=== PATIENT | male | born 1975 | race African-American/Black ===

== ENCOUNTER 2018-02-27 08:07 | Day surgery (SDC) | payer BC ==
[2018-02-23 10:10] VITALS: BMI 30.4
[2018-02-27 08:38] VITALS: RESP 16; TEMP 98
[2018-02-27] MEDS ORDERED: LIDOCAINE 1% 20 ML VIAL (10MG/ML) FOR IV START INTRADERMA ONE (08:50)
[2018-02-27] MEDS: LACTATED RINGERS 1,000 ML IV SCH ×2 (08:50→08:55)
[2018-02-27] MEDS ORDERED: LIDOCAINE 1% INJ 10MG/ML (20 ML MDV) ONE (08:57)
[2018-02-27] MEDS ORDERED: PROPOFOL 10 MG/ML 20 ML VIAL IV ONE (08:57)
--- NOTE | 2018-02-27 09:08 | P.GSHP ---
History of Present Illness H&P Date: 02/27/18 Chief Complaint: Screening colonoscopy, hemorrhoids Is a 42-year-old male who presents today for colonoscopy. Patient has issues with hemorrhoids. Past Medical History Past Medical History: No Reported History History of Any Multi-Drug Resistant Organisms: None Reported Additional Past Surgical History / Comment(s): dental work with anesthesia Past Anesthesia/Blood Transfusion Reactions: No Reported Reaction Smoking Status: Never smoker - Past Family History Mother Family Medical History: Deep Vein Thrombosis (DVT) Medications and Allergies Home Medications Medication Instructions Recorded Confirmed Type No Known Home Medications [No 02/23/18 02/23/18 History Known Home Medications] Allergies Allergy/AdvReac Type Severity Reaction Status Date / Time No Known Allergies Allergy Verified 02/23/18 10:04 Surgical - Exam Vital Signs Temp Pulse Resp BP Pulse Ox 98.0 F 77 16 130/89 94 L 02/27/18 08:37 02/27/18 08:37 02/27/18 08:37 02/27/18 08:37 02/27/18 08:37 - General well developed, no distress - Eyes PERRL - ENT normal pinna - Neck no masses - Respiratory normal expansion - Cardiovascular Rhythm: regular - Abdomen Abdomen: soft, non tender Assessment and Plan Assessment: Hemorrhoids We'll perform screening colonoscopy.
--- NOTE | 2018-02-27 09:33 | P.OP ---
Date of Procedure: 02/27/18 Preoperative Diagnosis: Hemorrhoids Screening colonoscopy Postoperative Diagnosis: Screening colonoscopy Hemorrhoids Procedure(s) Performed: Colonoscopy Anesthesia: MAC Surgeon: Antione Bradshaw Pathology: none sent Condition: stable Disposition: PACU Description of Procedure: PROCEDURE: The patient was placed on the endoscopy table in the lateral position. Digital rectal examination was performed which revealed mild internal and external hemorrhoids. The prostate was symmetrical without nodules. Flexible colonoscope was then placed in the patient's anus and passed throughout the entire colon. The ileocecal valve was visualized. The cecum, ascending, transverse, descending and sigmoid colon were normal. The rectum was normal as well. There were no masses, polyps or diverticula noted in the entire colon.
[2018-02-27 09:55] VITALS: BP 124/66; PULSE 74
== END 2018-02-27 10:05 | disposition home or self-care (01) ==
LOC: ORWHC2ENDO 08:07
PROVIDERS: ATTEND Surgery
DX: Z12.11 Encounter for screening for malignant neoplasm of colon (principal); K64.8 Other hemorrhoids; K64.4 Residual hemorrhoidal skin tags
CPT/HCPCS: 45378; J2001; J2704

== ENCOUNTER 2024-05-25 10:08 | Emergency (ER) | payer BC ==
[2024-05-25 10:24] VITALS: RESP 16; TEMP 98.4
--- NOTE | 2024-05-25 11:25 | ED ---
General Adult HPI - General Chief complaint: Recheck/Abnormal Lab/Rx Stated complaint: Poss DVT L leg Time Seen by Provider: 05/25/24 10:09 Source: patient, RN notes reviewed Mode of arrival: ambulatory Limitations: no limitations - History of Present Illness Initial comments: 49-year-old male presents emergency department from urgent care for left leg d iscomfort. Patient states he had an area of swelling which he thought was just an abscess. Patient was sent here because he has Pain throughout DVT. He denies any chest pain or shortness of breath. Patient denies any fevers or chills no other complaints. - Related Data Previous Rx's Medication Instructions Recorded Cephalexin [Keflex] 500 mg PO Q6HR #40 cap 05/25/24 Allergies Allergy/AdvReac Type Severity Reaction Status Date / Time No Known Allergies Allergy Verified 05/25/24 10:24 Review of Systems ROS Statement: Those systems with pertinent positive or pertinent negative responses have been documented in the HPI. ROS Other: All systems not noted in ROS Statement are negative. Past Medical History Past Medical History: No Reported History History of Any Multi-Drug Resistant Organisms: None Reported Additional Past Surgical History / Comment(s): dental work with anesthesia Past Anesthesia/Blood Transfusion Reactions: No Reported Reaction Past Psychological History: No Psychological Hx Reported Smoking Status: Never smoker Past Alcohol Use History: Occasional Past Drug Use History: None Reported - Past Family History Mother Family Medical History: Deep Vein Thrombosis (DVT) General Exam Limitations: no limitations General appearance: alert, in no apparent distress Head exam: Present: atraumatic, normocephalic, normal inspection Respiratory exam: Present: normal lung sounds bilaterally. Absent: respiratory distress, wheezes, rales, rhonchi, stridor Cardiovascular Exam: Present: regular rate, normal rhythm, normal heart sounds. Absent: systolic murmur, diastolic murmur, rubs, gallop, clicks Extremities exam: Present: other (Left lower extremity there is a circular 2 cm swollen area with Tenderness surrounding pedal pulses equal bilaterally) Course Vital Signs 05/25/24 05/25/24 10:20 12:16 Temperature 98.4 F Pulse Rate 76 62 Respiratory 16 16 Rate Blood Pressure 145/87 131/87 O2 Sat by Pulse 98 98 Oximetry Medical Decision Making - Medical Decision Making Was pt. sent in by a medical professional or institution (Dr., PA, COMPUTER SUPPORT ANALYST, urgent care, hospital, or shelter...) When possible be specific @ -[Urgent care Did you speak to anyone other than the patient for history (EMS, parent, family, police, friend...)? What history was obtained from this source @ -No Did you review nursing and triage notes (agree or disagree)? Why? @ -I reviewed and agree with nursing and triage notes Were old charts reviewed (outside hosp., previous admission, EMS record, old EKG, old radiological studies, urgent care reports/EKG's, shelter records)? Report findings @ -No old charts were reviewed Differential Diagnosis (chest pain, altered mental status, abdominal pain women, abdominal pain men, vaginal bleeding, weakness, fever, dyspnea, syncope, headache, dizziness, GI bleed, back pain, seizure, CVA, palpatations, mental health, musculoskeletal)? @ -DVT cellulitis hematoma abscess EKG interpreted by me (3pts min.). @ -None X-rays interpreted by me (1pt min.). @ -None done CT interpreted by me (1pt min.). @ -None done U/S interpreted by me (1pt. min.). @ -Ultrasound venous Doppler showed no evidence of DVT possible hematoma versus abscess What testing was considered but not performed or refused? (CT, X-rays, U/S, labs)? Why? @ -None What meds were considered but not given or refused? Why? @ -None Did you discuss the management of the patient with other professionals (professionals i.e. IFEANYI Booth, COMPUTER SUPPORT ANALYST, lab, RT, psych nurse, social economist, business technology analyst, teacher, hospital admissions officer, immigration case worker)? Give summary @ -No Was smoking cessation discussed for >3mins.? @ -No Was critical care preformed (if so, how long)? @ -No Were there social determinants of health that impacted care today? How? (Homelessness, low income, unemployed, alcoholism, drug addiction, transportation, low edu. Level, literacy, decrease access to med. care, fci, rehab)? @ -No Was there de-escalation of care discussed even if they declined (Discuss DNR or withdrawal of care, Hospice)? DNR status @ -No What co-morbidities impacted this encounter? (DM, HTN, Smoking, COPD, CAD, Cancer, CVA, ARF, Chemo, Hep., AIDS, mental health diagnosis, sleep apnea, morbid obesity)? @ -None Was patient admitted / discharged? Hospital course, mention meds given and route, prescriptions, significant lab abnormalities, going to OR and other pertinent info. @ -Charge patient had ultrasound of his left leg negative for DVT sent in by urgent care there is what appears to be a hematoma possible abscess patient started on Keflex patient will follow-up he did have a traumatic injury. Undiagnosed new problem with uncertain prognosis? @ -No Drug Therapy requiring intensive monitoring for toxicity (Heparin, Nitro, Insulin, Cardizem)? @ -No Were any procedures done? @ -No Diagnosis/symptom? @ -Hematoma, abscess Acute, or Chronic, or Acute on Chronic? @ -Acute Uncomplicated (without systemic symptoms) or Complicated (systemic symptoms)? @Uncomplicated Side effects of treatment? @ -No Exacerbation, Progression, or Severe Exacerbation? @ -No Poses a threat to life or bodily function? How? (Chest pain, [place], [place], pneumonia, PE, COPD, DKA, ARF, appy, cholecystitis, CVA, Diverticulitis, Homicidal, Suicidal, threat to staff... and all critical care pts) @ -No Disposition Clinical Impression: Leg hematoma, Leg abscess Disposition: HOME SELF-CARE Condition: Stable Instructions (If sedation given, give patient instructions): Abscess (ED) Additional Instructions: Please return to the Emergency Department if symptoms worsen or any other concerns. Prescriptions: Cephalexin [Keflex] 500 mg PO Q6HR #40 cap Is patient prescribed a controlled substance at d/c from ED?: No Referrals: Jaspal Nava DO [Primary Care Provider] - 1-2 days Time of Disposition: 12:07
--- NOTE | 2024-05-25 11:37 | US ---
EXAMINATION TYPE: US venous doppler duplex LE LT DATE OF EXAM: 05/25/2024 11:17 AM COMPARISON: NONE CLINICAL INDICATION: Male, 49 years old with history of pain; Palpable lump left medial lower leg SIDE PERFORMED: Left TECHNIQUE: The lower extremity deep venous system is examined utilizing real time linear array sonog digna with graded compression, doppler sonography and color-flow sonography. VESSELS IMAGED: Common Femoral Vein Deep Femoral Vein Greater Saphenous Vein * Femoral Vein Popliteal Vein Small Saphenous Vein * Proximal Calf Veins (* superficial vessels) Right Leg: Left Leg: Appears negative for DVT, Grayscale, color doppler, spectral doppler imaging performed of the deep veins of the lower extremities. There is normal flow, compressibility, vascular waveforms. Left medial lower leg - 3.4 x 1.5 x 2.3cm irregular complex area no surrounding color Doppler flow were really appreciated. There is irregular margins with some streaky extension into the surrounding tissues. IMPRESSION: No evidence for deep vein thrombosis. Heterogenous area in the lower leg in the area of concern possibly representing hematoma and/or less likely infection given lack of surrounding color flow. Correlate with history. Short-term follow-up u ltrasound in 6-8 weeks recommended.
[2024-05-25 12:17] VITALS: BP 131/87; PULSE 62
== END 2024-05-25 12:17 | disposition home or self-care (01) ==
LOC: EC 10:08
DX: S80.12XA Contusion of left lower leg, initial encounter (principal); X58.XXXA Exposure to other specified factors, initial encounter
CPT/HCPCS: 99283

== ENCOUNTER → 2024-06-17 | Outpatient (CLI) | payer BC ==
--- NOTE | 2024-08-21 15:37 | P.SLEEP ---
History of Present Illness DATE: 06/17/2024 CONSULTATION/NEW PATIENT EVALUATION HISTORY OF PRESENT ILLNESS/SLEEP-WAKE EVALUATION: 49-year-old gentleman had be en evaluated in the sleep center for possible obstructive sleep apnea hypopnea syndrome. 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 FALLING ASLEEP: No problems with falling asleep. DURING SLEEP: Patient has loud snoring, witnessed episodes. Breathing during the sleep. Patient wakes up from sleep once with nocturia. Positive history of sweats and choking. No history of hypnogogical hallucinations, sleep paralysis, or cataplexy. DURING THE DAY/WAKE STATE: In the morning patient wake up tired, feels sleepin ess. [place] sleepiness scale is increased to 12. PAST MEDICAL HISTORY: Negative. PAST SURGICAL HISTORY: Negative. MEDICATIONS: None. SOCIAL HISTORY: Negative for smoking, quit using alcohol 2 years ago. FAMILY HISTORY: Positive for stroke by his mother, diabetes mellitus, cancer. REVIEW OF SYSTEMS: Snoring, awakenings from sleep, sleepiness during the day. No fevers. No double vision. No recent chest pain. No shortness of breath. No abdominal pain. No bleeding episodes. No blood in urine. No seizure episodes. PHYSICAL EXAMINATION: GENERAL: A pleasant patient without any distress. VITAL SIGNS: BP 131/92, HR 74, RR 16, weight 230 pounds, height 5 foot 7 inches, body mass index 35.7. HEENT: PERRLA, EOMI. Evaluation of oropharynx showed tongue protrudes midline, low position of soft palate Mallampati 4. NECK: Supple. No JVD. Thyroid is not palpable. 19 inches in circumference. LUNGS: Clear to percussion and to auscultation. Good air exchange. No wheezing or rhonchi. HEART: S1, S2 regular. No murmurs, gallops or rubs. ABDOMEN: Soft and nontender. Bowel sounds are present. No organomegaly appreciated. EXTREMITIES: No clubbing or cyanosis. FINGERPRINTER: Awake, alert, and oriented x3. Cranial nerves 2 to 7 intact. There is no fasciculation or atrophy noted. No focal deficits observed. ASSESSMENT: 1. Loud snoring, witnessed episodes of sleep apneas, extremely low position of soft palate Mallampati 4, wide neck 19 inches in circumference, sleepiness during the day for sleepiness scale increased to 12. Obstructive sleep apnea hypopnea syndrome. 2. Obesity, BMI 35.7. 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 PLAN: 1. Home sleep apnea test for evaluation of patient's breathing during sleep. 2. Following plan after reading sleep study. 3. Preferable position during sleep on the side. 4. No driving if patient feels any sleepiness. Patient is aware of civil and criminal liability for unsafe driving. 5. Sleep hygiene with sleep time for at least 7.5-8 hours. 6. Watching and losing weight. Thank you very much for referring this patient for consultation. Sincerely, Phillip Fong MD, PhD, FAASM. Diplomat of [place] [employer], Sleep Medicine Board by [employer] [employer] [employer] Central Office Frame Wirer of [facility] [place] Past Medical History Past Medical History: No Reported History History of Any Multi-Drug Resistant Organisms: None Reported Additional Past Surgical History / Comment(s): dental work with anesthesia Past Anesthesia/Blood Transfusion Reactions: No Reported Reaction Past Psychological History: No Psychological Hx Reported Smoking Status: Never smoker Past Alcohol Use History: Occasional Past Drug Use History: None Reported - Past Family History Mother Family Medical History: Deep Vein Thrombosis (DVT) Medications and Allergies Home Medications Medication Instructions Recorded Confirmed Type Cephalexin [Keflex] 500 mg PO Q6HR #40 cap 05/25/24 Rx Allergies Allergy/AdvReac Type Severity Reaction Status Date / Time No Known Allergies Allergy Verified 05/25/24 10:24 Sleep Note - Sleep Note Sleep Note: Temperature: Pulse Rate: Respiratory Rate: Blood Pressure: SpO2: Height: Weight: BMI: Neck Circumference:
== END ==
LOC: 3 N SLEEP 13:00
PROVIDERS: ATTEND Internal Medicine
CPT/HCPCS: 99211

== ENCOUNTER → 2024-10-07 | Outpatient (CLI) | payer BC ==
--- NOTE | 2024-10-16 14:18 | P.PCN ---
Description of Procedure: CLINICAL: A home sleep apnea test has been done for confirmation of possible obstructive sleep apnea-hypopnea syndrome. DESCRIPTION OF PROCEDURE: RESULTS: Recording time was 7 hours 56 minutes. Evaluation time was 7 hours 45 minutes. Evaluation time is sufficient for making conclusion about results of the test. Raw data of sleep recording has been reviewed and is adequate. Respiratory channel showed 111 apneas and 247 hypopneas. Apnea-hypopnea index was 46.1 per hour. Pulse rate in the range between minimum 52, maximum 111, average 74 by computer calculation. Lowest desaturation was 63%. IMPRESSION: 1. Severe Obstructive Sleep Apnea Hypopnea Syndrome with severe oxygen desaturation. Please see other impressions from consultation. PLAN: 1. The patient should have PAP titration for correction of respiratory abnormallities during sleep. 2. I will see patient for follow up visit to discuss results of the test, nicole quinteroate clinical response on treatment with PAP therapy and make any necessary adjustments related to mask fitting, pressure, and humidification. 3. Watching and losing weight. 4. Sleep hygiene with regular time in bed for at least 8 hours. 5. No driving if feeling any sleepiness. Thank you very much for allowing me to participate in the management of your patient. Sincerely, Phillip Fong MD, PhD, FAASM Diplomat of [place] [employer] Sleep Medicine Board of [place] [employer] Child Support Investigator of [facility] [place] cc: Jaspal Nava DO
== END ==
LOC: 3 N SLEEP 13:05
PROVIDERS: ATTEND Internal Medicine
DX: G47.33 Obstructive sleep apnea (adult) (pediatric) (principal); G47.36 Sleep related hypoventilation in conditions classified elsewhere

== ENCOUNTER 2024-12-02 19:42 | Outpatient (CLI) | payer BC ==
--- NOTE | 2024-12-04 14:02 | P.PCN ---
Description of Procedure: CLINICAL: Titration with positive air pressure has been done for correction of respiratory abnormalities during sleep. DESCRIPTION OF PROCEDURE: The standard montage for clinical polysomnography included the electroencephalogram, the electrocardiogram, the mentalis surface electromyography and Lead II cardiography. The respiratory battery consisted of measurements of nasal /buccal air flow, pressure transducer measurements from the nose, thoracic and /or abdominal effort and intercostal surface electromyography. Video monitoring has been done to check for any parasomnia events. Nocturnal oxyhemoglobin saturations were obtained by finger oximetry. Step-mata titration with positive airway pressure was utilized to control respiratory events. Raw data of sleep recording has been reviewed and is adequate. RESULTS: Sleep efficiency was decreased to 83.9%. Latency to sleep onset was short 9.0 minutes.]. Sleep architecture showed stage N1 was slightly decreased to 4.2%, Delta sleep was absent 0%, REM sleep was normal 22.3%. Heart rate was minimum 55 BPM, maximum 65 BPM, average 59 BPM. EMG showed 0 periodic limb movements per hour. PAP titration have been done with CPAP up to the pressure 10 cm H2O. The best results were at the pressure 10 cm H2O. Apnea hypopnea index reduced to 3.8. IMPRESSION: 1. Obstructive sleep apnea hypopnea syndrome mostly on controle with PAP treatment. 2. No significant periodic limb movements have been documented. Please see other impressions from consultation. PLAN: 1. The patient will have treatment with positive air pressure equipment with the level of pressure aorta PAP 512 cm H2O and should use it every night for the whole night. 2. Watching and losing weight. 3. Sleep hygiene with regular time in bed for at least 8 hours. 4. No driving if feeling any sleepiness. 5. I will see the patient for follow up visit to explain the results of the test, recommendations, check compliance with treatment and make any necessary adjustment related to mask fitting, pressure and humidification. Thank you very much for allowing me to participate in the management of your pat ient. Sincerely, Phillip Fong MD, PhD, FAASM Diplomat of [place] Sleep Medicine Board of [place] Animal Trapper of [facility] [place] cc: Jaspal Nava DO
== END 2024-12-03 05:20 | disposition home or self-care (01) ==
LOC: 3 N SLEEP 19:42
PROVIDERS: ATTEND Internal Medicine
DX: G47.33 Obstructive sleep apnea (adult) (pediatric) (principal); Z99.89 Dependence on other enabling machines and devices
CPT/HCPCS: 95811

== ENCOUNTER → 2025-02-27 | Outpatient (CLI) | payer BC ==
[2025-02-27 11:17] VITALS: BP 120/80; PULSE 68; RESP 16; TEMP 98.1
--- NOTE | 2025-02-27 11:35 | P.PROGSL ---
Subjective DATE: 02/27/2025 FOLLOW UP VISIT. Patient with obstructive sleep apnea hypopnea syndrome return to sleep center for follow-up visit. Recently patient had sleep study which documented obstructive sleep apnea hypopnea syndrome. Patient was initiated on PAP therapy and today is first visit after treatment was started. I explained results of sleep studies to the patient in details Patient was able to use PAP equipment every night for the whole night. The patient does not have significant problems with the mask, PAP pressure and humidification. [place] sleepiness scale is 8, which is normal. I checked information from PAP unit. PAP unit pressure 5-12, average 11.8 cm H2O. Usage is 100% and 90% for more then 4 hours, average 6.3 hours per night. Leak is 14.9 l/m, which is in acceptable range. Apnea Hypopnea Index is 1.0, which is normal. MEDICATIONS: None During physical exam: GENERAL: A pleasant patient without any distress. VITAL SIGNS: See below, weight 238 pounds. HEENT: PERRLA, EOMI.low position of soft palate, Mallapati 4 . NECK: Supple. No JVD. LUNGS: Clear to percussion and to auscultation. Good air exchange. No wheezing or rhonchi. HEART: S1, S2 regular. ABDOMEN: Soft and nontender.[] EXTREMITIES: No clubbing or cyanosis. PILLAR WORKER: Awake, alert, and oriented x3. No focal deficit. Impressions: 1. Obstructive sleep apnea-hypopnea syndrome. Patient demonstrated great compliance with treatment, benefiting from treatment. 2. Mild obesity, patient increased weight on 8 pounds comparing with previous visit. 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 Plan: 1. Continue using PAP equipment every night for the whole night. 2. To change air filter at least 1-2 times per month. 3. PAP unit should stay lower then position of the head. 4. Advised patient to remove all remaining water from humidifier canister daily and make it dry after each usage. Refill canister with fresh distilled water before each usage. 5. Sleep hygiene with regular time in bed for at least 8 hours. 6. Precautions related to driving. No driving if feel any sleepiness. 7. I will maintain prescription for PAP supplies including mask, tube, filters. 8. Follow up visit in 8 months or earlier if patient has any problems. 9. Watching and losing weight. Thank you very much for allowing me to participate in the management of your patient. Phillip Fong MD, PhD, FAASM. Diplomat of [place] [employer], Sleep Medicine Board by [place] [employer] K[employer]k Sales Representative of [facility] [place] Objective - Vital Signs Vital Signs: Vital Signs Temp 98.1 F 02/27/25 11:16 Pulse 68 02/27/25 11:16 Resp 16 02/27/25 11:16 BP 120/80 02/27/25 11:16 Pulse Ox 95 02/27/25 11:16 FiO2 Intake & Output 02/26/25 02/27/25 02/27/25 18:59 06:59 18:59 Weight 107.955 kg Home Medications: Home Medications Medication Instructions Recorded Confirmed Type Cephalexin [Keflex] 500 mg PO Q6HR #40 cap 05/25/24 Rx
== END ==
LOC: 3 N SLEEP 11:07
PROVIDERS: ATTEND Internal Medicine
DX: G47.33 Obstructive sleep apnea (adult) (pediatric) (principal); E66.9 Obesity, unspecified; Z99.89 Dependence on other enabling machines and devices
CPT/HCPCS: 99212

== ENCOUNTER 2025-05-08 08:03 | Day surgery (SDC) | payer BC ==
[~2025-05-08 08:03] MED LIST: LIDOCAINE 1% (10MG/ML) FOR IV START INTRADERMA PRN
[2025-05-08 08:32] VITALS: TEMP 97.5
[2025-05-08] MEDS: IV FLUID CONTINUATION 1,000 ML IV ONE (08:33)
[2025-05-08] MEDS: LACTATED RINGERS 1,000 ML IV SCH (08:35)
[2025-05-08] MEDS ORDERED: PROPOFOL 10 MG/ML 20 ML VIAL IV ONE (09:05)
[2025-05-08] MEDS ORDERED: LIDOCAINE 1% INJ 10MG/ML (20 ML MDV) ONE (09:05)
--- NOTE | 2025-05-08 09:09 | P.GSHP ---
History of Present Illness H&P Date: 05/08/25 Chief Complaint: Screening colonoscopy This is a 50-year-old male presents today for colon screening colonoscopy. Patient's last colonoscopy was approximately 8 years ago. Patient states he had hemorrhoids at that time Past Medical History Past Medical History: Sleep Apnea/CPAP/BIPAP Additional Past Medical History / Comment(s): uses CPAP History of Any Multi-Drug Resistant Organisms: None Reported Additional Past Surgical History / Comment(s): dental work with anesthesia; colonoscopy age 43. left leg abscess drained. Past Anesthesia/Blood Transfusion Reactions: No Reported Reaction Smoking Status: Never smoker - Past Family History Mother Family Medical History: Deep Vein Thrombosis (DVT) Medications and Allergies Home Medications Medication Instructions Recorded Confirmed Type Cetirizine HCl [Zyrtec] 10 mg PO DAILY PRN 05/07/25 05/07/25 History Fluticasone Nasal [place] [Flonase 1 spray EA NOSTRIL DAILY PRN 05/07/25 05/07/25 History Nasal [place]] Allergies Allergy/AdvReac Type Severity Reaction Status Date / Time No Known Allergies Allergy Verified 05/08/25 08:21 Surgical - Exam Vital Signs Temp Pulse Resp BP Pulse Ox 97.5 F L 62 16 140/90 97 05/08/25 08:23 05/08/25 08:23 05/08/25 08:23 05/08/25 08:23 05/08/25 08:23 - General well developed, well nourished, no distress - Eyes PERRL - ENT normal pinna - Neck no masses - Respiratory normal expansion - Cardiovascular Rhythm: regular - Abdomen Abdomen: soft, non tender Assessment and Plan Assessment: Will perform screening colonoscopy.
[2025-05-08] MEDS: IV FLUID CONTINUATION 600 ML IV ONE (09:20)
--- NOTE | 2025-05-08 09:22 | P.OP ---
Date of Procedure: 05/08/25 Preoperative Diagnosis: Screening colonoscopy Postoperative Diagnosis: Normal colonoscopy Procedure(s) Performed: Colonoscopy Anesthesia: MAC Surgeon: Antione Bradshaw Pathology: none sent Condition: stable Disposition: PACU Description of Procedure: PROCEDURE: The patient was placed on the endoscopy table in the lateral position. Digital rectal examination was performed which revealed no abnormalities. The prostate was symmetrical without nodules. Flexible colonoscope was then placed in the patient's anus and passed throughout the entire colon. The ileocecal valve was visualized. The cecum, ascending, transverse, descending and sigmoid colon were normal. The rectum was normal as well. There were no masses, polyps or diverticula noted in the entire colon. SUMMARY OF FINDINGS: Normal colonoscopy. Recommended follow-up in 10 years.
[2025-05-08 09:41] VITALS: PULSE 62; RESP 16
[2025-05-08 09:48] VITALS: BP 132/91
== END 2025-05-08 10:45 | disposition home or self-care (01) ==
LOC: ORWHC2ENDO 08:03
PROVIDERS: ATTEND Surgery
DX: Z12.11 Encounter for screening for malignant neoplasm of colon (principal); K64.9 Unspecified hemorrhoids; F17.200 Nicotine dependence, unspecified, uncomplicated; G47.33 Obstructive sleep apnea (adult) (pediatric); Z79.899 Other long term (current) drug therapy
CPT/HCPCS: 45378; J2003; J2704